=== PATIENT | male | born 1980 | race Caucasian/White ===

== ENCOUNTER → 2019-06-24 | Outpatient (CLI) | payer BC ==
[2019-06-24 17:27] LABS: HCT 46.3 % (39.0-53.0); HGB 15.5 gm/dL (13.0-17.5); MCH 29.2 pg (25.0-35.0); MCHC 33.6 g/dL (31.0-37.0); MCV 86.9 fL (80.0-100.0); Mean Platelet Volume 7.7; Platelet Count 291 k/uL (150-450); RBC 5.33 m/uL (4.30-5.90); RDW 13.5 % (11.5-15.5); WBC 9.1 k/uL (3.8-10.6)
[2019-06-24 23:23] LABS: Estradiol 22.9 pg/mL; Ferritin 265.6 ng/mL (22.0-322.0)
[2019-06-24 23:54] LABS: African American GFR (CKD) 97.5 (60.0-200.0); Albumin 5.2 g/dL (3.80-4.90); Albumin/Globulin Ratio 2.6 (1.60-3.17); Anion Gap 9.4 mmol/L (4.00-12.00); BUN/Creat Ratio 14.55 Ratio (12.00-20.00); C Reactive Protein 0.4 mg/dL (0.0-0.8); Carbon Dioxide 24.6 mmol/L (21.6-31.8); Chol/HDL Ratio 3.55; LDL Cholesterol,Calculated 80.2 mg/dL (0.0-131.0); Non-African American GFR(CKD) 84.1 (60.0-200.0); Potassium 4.2 mmol/L (3.5-5.5); Progesterone 0.3 ng/mL; Total Bilirubin 0.6 mg/dL (0.3-1.2); Total Protein 7.2 g/dL (6.2-8.2); VLDL Calculation 31.8 mg/dL (5.00-40.00)
[2019-06-25 02:09] LABS: Hemoglobin A1C 5.1 % (4.0-6.0)
== END | disposition home or self-care (01) ==
LOC: LABWHC1 16:50
PROVIDERS: ATTEND Family Medicine
DX: Z00.00 Encounter for general adult medical examination without abnormal findings (principal); Z12.5 Encounter for screening for malignant neoplasm of prostate; G47.33 Obstructive sleep apnea (adult) (pediatric); R53.83 Other fatigue
CPT/HCPCS: 80061; 80053; 82728; 82670; 85027; 86140; 84402; 84403; 82627; 83090; 84144; 82306; 83036; 36415; G0103

== ENCOUNTER → 2020-12-19 | Outpatient (CLI) | payer BC ==
--- NOTE | 2020-12-19 18:40 | CONS ---
CONSULTATION A 40-year-old gentleman has been evaluated in Sleep Center for possible obstructive sleep apnea-hypopnea syndrome. HISTORY OF PRESENT ILLNESS: Patient's usual sleep schedule on working days from 9 p.m. to 4:30 a.m. and on weekends from 11:00 pm until 7 a.m. No problems with falling asleep. No TV in bedroom. The patient usually sleeps on the side position. According to his , he has loud snoring and witnessed episodes of stopped breathing during sleep. The patient wakes up from sleep once with nocturia and sweating. In the morning, the patient wakes up tired, falling asleep during the day. [place] Sleepiness Scale is in extremely high range of 20. The patient has episodes of irritability. He does not take any naps because he is quite busy during the day. No history of hypnagogic hallucinations, sleep paralysis or cataplexy. PAST MEDICAL HISTORY: Positive for depression. Tendency for increasing blood pressure. PAST SURGICAL HISTORY: None. MEDICATIONS: Wellbutrin. SOCIAL HISTORY: Positive for smoking about 1-1/2 pack a day for 15 years. Quit 8 years ago. Alcohol consumption, occasional. FAMILY HISTORY: Hypertension. REVIEW OF SYSTEMS: Loud snoring, awakenings from sleep, sleepiness during the day. PHYSICAL EXAMINATION: GENERAL: gentleman without distress BP 153/83, HR 90, RR 15, height 5 feet 10 inches, weight 258. Body mass index is 37, temperature 98.7, oxygen saturation: 96% HEENT: Oropharynx low position of soft palate. Mallampati 3. NECK: Is white, 19 inches in circumference. LUNGS: Clear to percussion and to auscultation. Good air exchange. No wheezing or rhonchi. HEART: S2, S2 regular. No murmurs, gallops or rubs. ABDOMEN: Obese. EXTREMITIES: No clubbing or cyanosis. EARLY CHILDHOOD WORKER: Awake, alert, and oriented X3. Cranial nerves 2 to 7 intact. There is no fasciculation or atrophy noted. No focal deficits observed. IMPRESSION: 1. Loud snoring, witnessed episodes of stopped breathing during sleep. Low position of soft palate, Mallampati 3, wide neck 19 inches in circumference, obstructive sleep apnea-hypopnea syndrome. 2. Obesity, body mass index 37. 3. History of depression. 4. Extremely high level of [place] Sleepiness Scale of 20 dictate necessity to include hypersomnia and narcolepsy in differential diagnosis. 5. Hypertension in the office. PLAN: 1. Home sleep apnea test for evaluation of patient breathing, for confirmation of sleep apnea. 2. If home sleep apnea test negative or if the patient on treatment with CPAP, the patient continues to feel sleepiness, multiple sleep latency test. 3. Losing weight. 4. Sleep hygiene with regular time in bed for at least 7.5 to 8 hours. 5. No driving if feeling sleepiness. Thank you very much for referring this patient for consultation. Sincerely, DAVID / STEVANN: [id number] / ESTRELLA
== END ==
LOC: SLEEP 15:38
PROVIDERS: ATTEND Internal Medicine
DX: G47.33 Obstructive sleep apnea (adult) (pediatric) (principal); E66.9 Obesity, unspecified; F32.9 Major depressive disorder, single episode, unspecified; I10 Essential (primary) hypertension; Z87.891 Personal history of nicotine dependence; Z68.37 Body mass index [BMI] 37.0-37.9, adult
CPT/HCPCS: 99211

== ENCOUNTER → 2021-07-03 | Outpatient (CLI) | payer BC ==
--- NOTE | 2021-07-03 15:43 | SFUN ---
SLEEP CENTER FOLLOW UP NOTE DATE OF SERVICE: 07/03/2021 40-year-old gentleman has been followed in Sleep Center for treatment of obstructive sleep apnea-hypopnea syndrome. Recently, the patient had home sleep apnea test and CPAP titration and I discussed results of sleep studies with patient in detail. Home sleep apnea test showed extremely severe obstructive sleep apnea. Subsequently, patient was started on treatment with CPAP. Today is his first visit after treatment was initiated. The patient feels significantly better with CPAP. He sleeps better. He feels better during the day. [place] Sleepiness Scale today is 8 which is in significantly decreased from 20 during the first visit in Sleep Center. I checked CPAP unit. Range of the pressure 9-14, average pressure 13.7, usage is 97% of nights and days which is 73% of nights, more than 4 hours, average usage 4 hours 49 minutes per night. Leak is a quite significant 46.4 L/minute, 95%, median 21.2, but apnea-hypopnea index only 1.4 which is totally normal range. MEDICATIONS: Wellbutrin. PHYSICAL EXAMINATION: GENERAL: Patient in no distress. BP 138/74, HR 84, RR 14, weight 257.4, temperature 97.1, oxygen saturation at room air 93%. Oropharynx low position of soft palate, Mallampati 3. NECK: Supple, no JVD. Thyroid is not palpable. LUNGS: Clear to percussion and to auscultation. Good air exchange. No wheezing or rhonchi. HEART: S1, S2 regular. No murmurs, gallops, or rubs. ABDOMEN: Obese. Soft and nontender. Bowel sounds are present. No organomegaly appreciated. EXTREMITIES: No clubbing or cyanosis. SENIOR CLINICAL DATA ANALYST: Awake, alert, and oriented X3. Cranial nerves 2 to 7 intact. There is no fasciculation or atrophy. noted. No focal deficits observed. IMPRESSION: 1. Extremely severe obstructive sleep apnea-hypopnea syndrome apnea-hypopnea index 89 by results of home sleep apnea test with oxygen desaturation to 58%. The patient demonstrated good compliance with treatment. Totally normal respiration on CPAP. 2. The patient improved his alertness. [place] Sleepiness Scale decreased from 20 to 8 which is in normal range. 3. Obesity. 4. Slightly increased blood pressure in the office. PLAN: 1. Monitoring blood pressure. 2. Low-sodium diet. 3. Patient will continue to use PAP equipment every night for the whole night. 4. Sleep hygiene with regular time in bed for at least 7-1/2 to 8 hours. 5. Precautions related to driving. No driving if feeling sleepiness. 6. I will maintain all necessary prescription for PAP supplies including mask, tube, filters. 7. Watching weight. 8. Follow-up visit in 6 months or earlier if patient has any problems. Thank you very much for allowing me to participate in management of your patient. Sincerely, René Jordan MD, PhD, FAASM Diplomat of [employer] Sleep Medicine Board of [employer] Car Pick Up Driver of [facility] [place] MMODL / IJN: [id number] /
== END ==
LOC: SLEEP 13:00
PROVIDERS: ATTEND Internal Medicine
DX: G47.33 Obstructive sleep apnea (adult) (pediatric) (principal); E66.9 Obesity, unspecified; I10 Essential (primary) hypertension; F17.200 Nicotine dependence, unspecified, uncomplicated; Z99.89 Dependence on other enabling machines and devices

== ENCOUNTER 2021-09-24 10:26 | Emergency (ER) | payer BC ==
[2021-09-24 10:39] VITALS: BP 142/80; PULSE 98; RESP 18; TEMP 100.3
== END 2021-09-24 11:34 ==
LOC: EC 10:26
DX: Z01.84 Encounter for antibody response examination (principal)
CPT/HCPCS: 99499

== ENCOUNTER → 2022-09-09 | Outpatient (CLI) | payer BC ==
[2022-09-09 21:56] LABS: Clam IgE <0.10 kU/L; Codfish IgE <0.10 kU/L; Egg White IgE <0.10 kU/L; Peanut IgE <0.10 kU/L; Scallop IgE <0.10 kU/L; Shrimp IgE <0.10 kU/L; Soybean IgE <0.10 kU/L; Walnut IgE (Food) <0.10 kU/L
[2022-09-10 12:26] LABS: Gluten IgE Class CLASS 0; Hops IgE <0.10 kU/L (<0.10); Hops IgE Class CLASS 0; Oat IgE Class CLASS 0; Yeast Bakers/Brew IgE <0.10 kU/L (<0.10); Yeast Bakers/Brew IgE Class CLASS 0
== END | disposition home or self-care (01) ==
LOC: LABWHC1 08:36
PROVIDERS: ATTEND Otolaryngology
DX: J30.89 Other allergic rhinitis (principal)
CPT/HCPCS: 36415; 82785; 86001; 86003

== ENCOUNTER → 2022-12-12 | Outpatient (CLI) | payer BC ==
--- NOTE | 2022-12-12 08:36 | MR ---
[facility] MRI CERVICAL SPINE: CLINICAL HISTORY: Cervicalgia. History of injury with neck pain causing right hand numbness for 3 mon ths. TECHNIQUE: Multiplanar, multisequence imaging of the cervical spine is performed without IV contrast. COMPARISON: None. FINDINGS: There is dextroconvex scoliosis centered in the mid to lower lumbar spine on coronal images . Sagittal images of the cervical spine show the craniocervical junction to appear within normal limi ts. The cervical and upper thoracic spinal cord is normal in course, caliber, and signal. Vertebral alignment is satisfactory on sagittal images. The vertebral body heights are normal. Mild to modera te disc space narrowing and spurring at C5-C6 level. Mild disc space narrowing and spurring at C6-C7 level. The bone marrow signal intensity is within normal limits. Axial images show C2-C3 level to appear within normal limits. Axial images at C3-C4 level shows a left paracentral/foraminal spur disc complex mildly efface the an terolateral thecal sac and causing asymmetric moderate left-sided neural foraminal narrowing. Axial images at C4-C5 level appear within normal limits. Axial images at C5-C6 level shows broad-based right paracentral disc protrusion effacing the anterior thecal sac of the ventral surface of spinal cord with left foraminal component causing [id number] ate left-sided neural foraminal narrowing. Right-sided neural foramen is patent. Axial images at C6-C7 level show superior disc extrusion effacing anterior thecal sac and some uncove rtebral facet degenerative change causing mild to moderate left-sided neural foraminal narrowing. Axial images at C7-T1 level appear within normal limits. IMPRESSION: Scoliosis with multilevel degenerative change in the cervical spine as detailed above.
== END | disposition home or self-care (01) ==
LOC: RADMRIMAIN 07:41
PROVIDERS: ATTEND Orthopaedic Surgery Sports Medicine
DX: M47.22 Other spondylosis with radiculopathy, cervical region (principal); M48.02 Spinal stenosis, cervical region; M41.52 Other secondary scoliosis, cervical region; M46.02 Spinal enthesopathy, cervical region
CPT/HCPCS: 72141

== ENCOUNTER → 2023-03-23 | Outpatient (CLI) | payer BC ==
--- NOTE | 2023-03-24 23:30 | MR ---
EXAMINATION TYPE: MR shoulder RT wo con DATE OF EXAM: 03/23/2023 COMPARISON: Outside right shoulder x-ray March 16, 2023 HISTORY: Right shoulder pain and loss of strength for 6 months due to lifting injury. TECHNIQUE: Multiplanar, multisequence imaging of the right shoulder is performed without contrast. FINDINGS: Rotator Cuff: Some fluid surrounds the superior aspect of the supraspinatus tendon. Supraspinatus and infraspinatus tendons are grossly intact. Subscapularis tendon is intact. Rotator cuff muscle bulk i s preserved. Acromioclavicular Joint: [id number] narrowing capsular hypertrophy at the acromioclavicular katie nt. Loss of underlying fat plane noted. Glenohumeral Joint: No significant effusion or spurring. Labrum: The labrum appears grossly intact given limitation of non-arthrogram study. Biceps Tendon: The long head of biceps is in normal location within bicipital groove. Bone marrow signal: No focal abnormal marrow signal is appreciated. Other: No additional significant abnormality is appreciated. IMPRESSION: 1. No significant rotator cuff or labral tear. 2. AC joint arthropathy with suggestion of underlying impingement. Correlate clinically.
== END | disposition home or self-care (01) ==
LOC: RADMRIMAIN 20:45
PROVIDERS: ATTEND Orthopaedic Surgery
DX: M25.811 Other specified joint disorders, right shoulder (principal); M25.511 Pain in right shoulder

== ENCOUNTER → 2023-04-09 | Outpatient (CLI) | payer BC ==
--- NOTE | 2023-04-09 14:01 | P.PN ---
Subjective DATE: 04/09/2023 FOLLOW UP VISIT. Patient with obstructive sleep apnea hypopnea syndrome return to sleep center for follow-up visit. Information from previous visit have been reviewed. Patient is using PAP equipment every night for the whole night, getting PAP supplies in time. The patient does not have significant problems with the mask, PAP unit and humidification. [place] sleepiness scale is 6, which is normal. I checked information from PAP unit and discussed it with patient in details. PAP unit pressure 9-14, average 12.1 cm H2O. Usage is 100 % for more then 4 hours, average 6.5 hours per night. Leak is increased to 78 l/m, patient has beer and mustache. Apnea Hypopnea Index is 2.3, which is normal. MEDICATIONS:1. Wellbutrin During physical exam: GENERAL: A pleasant patient without any distress. VITAL SIGNS: BP 143/82, HR 82, RR 16, weight 356.2, temperature 98.0, oxygen saturation at room air 97 % . HEENT: PERRLA, EOMI.low position of soft palate, Mallapati 3 . NECK: Supple. No JVD. LUNGS: Clear to percussion and to auscultation. Good air exchange. No wheezing or rhonchi. HEART: S1, S2 regular. ABDOMEN: Soft and nontender. Slightly obese EXTREMITIES: No clubbing or cyanosis. AUTO CLUTCH SPECIALIST: Awake, alert, and oriented x3. No focal deficit. Impressions: 1. Obstructive sleep apnea-hypopnea syndrome. Patient demonstrated great compliance with treatment, benefiting from treatment. 2. Obesity. 3. Blood pressure is again slightly increased in the office. Plan: 1. Continue using PAP equipment every night for the whole night. 2. To change air filter at least 1-2 times per month. 3. PAP unit should stay lower then position of the head. 4. Advised patient to remove all remaining water from humidifier canister daily and make it dry after each usage. Refill canister with fresh distilled water before each usage. 5. Sleep hygiene with regular time in bed for at least 8 hours. 6. Precautions related to driving. No driving if feel any sleepiness. 7. I will maintain prescription for PAP supplies including mask, tube, filters. 8. Follow up visit in 6 months or earlier if patient has any problems. 9. Watching and losing weight. 10. Low sodium diet. 11 monitoring blood pressure.. Thank you very much for allowing me to participate in the management of your patient. René Jordan MD, PhD, FAASM. Diplomat of [employer], Sleep Medicine Board by [employer] Beater Tender of [facility] [place]
== END ==
LOC: 3 N SLEEP 13:28
PROVIDERS: ATTEND Internal Medicine
DX: G47.33 Obstructive sleep apnea (adult) (pediatric) (principal); E66.9 Obesity, unspecified; F17.200 Nicotine dependence, unspecified, uncomplicated; R03.0 Elevated blood-pressure reading, without diagnosis of hypertension; Z99.89 Dependence on other enabling machines and devices
CPT/HCPCS: 99212

== ENCOUNTER → 2023-10-15 | Outpatient (CLI) | payer BC ==
--- NOTE | 2023-10-15 13:48 | P.PN ---
Subjective DATE: 10/15/2023 FOLLOW UP VISIT. Patient with obstructive sleep apnea hypopnea syndrome return to sleep center for follow-up visit. Information from previous visit have been reviewed. Patient is using PAP equipment every night for the whole night, getting PAP supplies in time. The patient does not have significant problems with the mask, PAP unit and humidification. [place] sleepiness scale is 9, which is close to border. I checked information from PAP unit. PAP unit pressure 9-14, average 11.8 cm H2O. Usage is 100% for more then 4 hours, average 6.2 hours per night. Leak is high 72 l/m. Apnea Hypopnea Index is 2.6, which is normal. MEDICATIONS: None During physical exam: GENERAL: A pleasant patient without any distress. VITAL SIGNS: Please see below, weight 248.8 pounds. HEENT: PERRLA, EOMI.low position of soft palate, Mallapati 3 . NECK: Supple. No JVD. LUNGS: Clear to percussion and to auscultation. Good air exchange. No wheezing or rhonchi. HEART: S1, S2 regular. ABDOMEN: Soft and nontender.[] EXTREMITIES: No clubbing or cyanosis. ENGINEER CHIEF: Awake, alert, and oriented x3. No focal deficit. Impressions: 1. Obstructive sleep apnea-hypopnea syndrome. Patient demonstrated great compliance with treatment, benefiting from treatment. 2. Blood pressure increased in the office again. Today is 152/89. 3. Mild obesity, patient increased weight on 8 pounds comparing with previous visit. Plan: 1. Continue using PAP equipment every night for the whole night. 2. To change air filter at least 1-2 times per month. 3. PAP unit should stay lower then position of the head. 4. Advised patient to remove all remaining water from humidifier canister daily and make it dry after each usage. Refill canister with fresh distilled water before each usage. 5. Sleep hygiene with regular time in bed for at least 8 hours. 6. Precautions related to driving. No driving if feel any sleepiness. 7. I will maintain prescription for PAP supplies including mask, tube, filters. 8. Follow up visit in 6 months or earlier if patient has any problems. 9. Watching and losing weight. 10. Monitoring blood pressure. 11. Low-sodium diet. Thank you very much for allowing me to participate in the management of your patient. René Jordan MD, PhD, FAASM. Diplomat of [employer], Sleep Medicine Board by [employer] Show Host Or Hostess of [facility] [place] Objective - Vital Signs Vital signs: Vital Signs Temp 98.3 F 10/15/23 13:13 Pulse 83 10/15/23 13:13 Resp 18 10/15/23 13:13 BP 152/89 10/15/23 13:13 Pulse Ox 97 10/15/23 13:13 FiO2 Intake & Output 10/14/23 10/15/23 10/15/23 18:59 06:59 18:59 Weight 112.718 kg
[2023-10-15 13:50] VITALS: BP 152/89; PULSE 83; RESP 18; TEMP 98.3
== END ==
LOC: 3 N SLEEP 13:03
PROVIDERS: ATTEND Internal Medicine
DX: G47.33 Obstructive sleep apnea (adult) (pediatric) (principal); E66.9 Obesity, unspecified; R03.0 Elevated blood-pressure reading, without diagnosis of hypertension; F17.200 Nicotine dependence, unspecified, uncomplicated; Z99.89 Dependence on other enabling machines and devices
CPT/HCPCS: 99212

== ENCOUNTER 2024-07-01 22:46 | Emergency (ER) | payer BC ==
--- NOTE | 2024-07-01 23:38 | ED ---
Chest Pain HPI - General Chief Complaint: Abdominal Pain Stated Complaint: abd pain Time Seen by Provider: 07/01/24 23:21 Source: patient Mode of arrival: ambulatory Limitations: no limitations - History of Present Illness Initial Comments: Patient is a 43-year-old man who presents with complaint that he is having "heartburn." Patient states that he had eaten soup approximately 2 to 3 hours ago and then started having burning substernal pain from the epigastric upward. He states he had similar episode approximately 3 years ago was seen here, recei paloma GI cocktail, felt better and went home. The patient denies other medical problems, no history of surgeries. No associated symptoms. MD Complaint: chest pain Onset/Timin -: hour(s) Onset: after eating Pain Location: substernal, epigastric Pain Radiation: none Severity: severe Quality: other (Burning) Consistency: constant Improves With: nothing Worsens With: nothing Treatments Prior to Arrival: none - Related Data Previous Rx's Medication Instructions Recorded Famotidine [Pepcid] 20 mg PO BID #14 tablet 07/02/24 Allergies Allergy/AdvReac Type Severity Reaction Status Date / Time No Known Allergies Allergy Verified 07/01/24 22:54 Review of Systems ROS Statement: Those systems with pertinent positive or pertinent negative responses have been documented in the HPI. ROS Other: All systems not noted in ROS Statement are negative. Constitutional: Denies: fever, chills Respiratory: Denies: cough, dyspnea Cardiovascular: Reports: as per HPI, chest pain. Denies: palpitations, edema, syncope Gastrointestinal: Reports: abdominal pain. Denies: nausea, vomiting, diarrhea, hematemesis, melena, hematochezia Genitourinary: Denies: dysuria, hematuria Musculoskeletal: Denies: back pain Skin: Denies: rash Neurological: Denies: headache, weakness EKG Findings - EKG Results: EKG: interpreted by ERMD, sinus rhythm (Rate 64 bpm), normal axis, normal QRS - Blocks, Romeo, Hypertrophy, ST Abn: Repolarization changes or abnormalities: nonspecific abnormality, ST segment, and/or T wave Past Medical History Past Medical History: No Reported History History of Any Multi-Drug Resistant Organisms: None Reported Past Surgical History: No Surgical Hx Reported Past Psychological History: No Psychological Hx Reported Smoking Status: Vaper Past Alcohol Use History: Rare Past Drug Use History: None Reported General Exam General appearance: alert, in no apparent distress Head exam: Present: atraumatic, normocephalic Eye exam: Present: normal appearance. Absent: scleral icterus, conjunctival injection Neck exam: Present: normal inspection Respiratory exam: Present: normal lung sounds bilaterally. Absent: respiratory distress, wheezes, rales, rhonchi, stridor, accessory muscle use Cardiovascular Exam: Present: regular rate, normal rhythm, normal heart sounds. Absent: systolic murmur, diastolic murmur, rubs, gallop GI/Abdominal exam: Present: soft, tenderness (There is epigastric and right upper quadrant tenderness, no rebound or guarding). Absent: distended, guarding, rebound, rigid, mass Extremities exam: Present: normal inspection, normal capillary refill. Absent: pedal edema, calf tenderness Back exam: Present: normal inspection. Absent: CVA tenderness (R), CVA tenderness (L) Neurological exam: Present: alert Skin exam: Present: warm, dry, intact, normal color. Absent: rash Course Vital Signs 07/01/24 07/02/24 07/02/24 22:49 00:28 01:31 Temperature 98.9 F 98.8 F 98.6 F Pulse Rate 75 64 71 Respiratory 18 18 Rate Blood Pressure 166/92 148/92 143/83 O2 Sat by Pulse 100 97 98 Oximetry 07/02/24 02:39 Temperature Pulse Rate 74 Respiratory 16 Rate Blood Pressure 145/68 O2 Sat by Pulse 98 Oximetry Chest Pain MDM - MDM The patient had ultrasound of the right upper quadrant that I interpreted as negative for acute cholecystitis, normal common bile duct, no obvious surgical condition. The patient had chest x-ray that I interpreted as negative for acute infiltrate, pneumothorax, congestive heart failure Was pt. sent in by a medical professional or institution (, PA, WINTERIZER, urgent care, hospital, or [place] health care facility...) When possible be specific @ -[No] Did you speak to anyone other than the patient for history (EMS, parent, family, police, friend...)? What history was obtained from this source @ -[No] Did you review nursing and triage notes (agree or disagree)? Why? @ -[I reviewed and agree with nursing and triage notes] Were old charts reviewed (outside hosp., previous admission, EMS record, old EKG, old radiological studies, urgent care reports/EKG's, [place] health care facility records)? Report findings @ -[No old charts were reviewed] Differential Diagnosis (chest pain, altered mental status, abdominal pain women, abdominal pain men, vaginal bleeding, weakness, fever, dyspnea, syncope, headache, dizziness, GI bleed, back pain, seizure, CVA, palpatations, mental health, musculoskeletal)? @ -[Differential Chest Pain: Stable Angina, Unstable Angina, STEMI, NSTEMI Aortic Dissection, Pneumothorax, Musculoskeletal, Esophageal Spasm GERD, Cholecystitis, Pancreatitis, Zoster, this is not meant to be an all-inclusive list. EKG interpreted by me (3pts min.). @ -[I interpreted as above] X-rays interpreted by me (1pt min.). @ -[I interpreted as above CT interpreted by me (1pt min.). @ -[None done] U/S interpreted by me (1pt. min.). @ -[I interpreted as above What testing was considered but not performed or refused? (CT, X-rays, U/S, labs)? Why? @ -[None] What meds were considered but not given or refused? Why? @ -[None] Did you discuss the management of the patient with other professionals (professionals i.e. , PA, WINTERIZER, lab, RT, psych nurse, social media analyst, automobile mechanic radiator, teacher, retail loss prevention officer, community case manager)? Give summary @ -[No] Was smoking cessation discussed for >3mins.? @ -[No] Was critical care preformed (if so, how long)? @ -[No] Were there social determinants of health that impacted care today? How? (Homelessness, low income, unemployed, alcoholism, drug addiction, transportation, low edu. Level, literacy, decrease access to med. care, fpc, rehab)? @ -[No] Was there de-escalation of care discussed even if they declined (Discuss DNR or withdrawal of care, Hospice)? DNR status @ -[No] What co-morbidities impacted this encounter? (DM, HTN, Smoking, COPD, CAD, Cancer, CVA, ARF, Chemo, Hep., AIDS, mental health diagnosis, sleep apnea, m orbid obesity)? @ -[None] Was patient admitted / discharged? Hospital course, mention meds given and route, prescriptions, significant lab abnormalities, going to OR and other pertinent info. @ -[Patient is 43-year-old man here with exacerbation of reflux esophagitis. The patient did have improvement with treatment here. At this point stable for further evaluation and treatment as outpatient we also discussed that patient should have stress test to ensure that there is no evidence of cardiac disease Undiagnosed new problem with uncertain prognosis? @ -[No] Drug Therapy requiring intensive monitoring for toxicity (Heparin, Nitro, Insulin, Cardizem)? @ -[No] Were any procedures done? @ -[No] Diagnosis/symptom? @ -[Gastroesophageal reflux Acute, or Chronic, or Acute on Chronic? @ -[Acute on chronic Uncomplicated (without systemic symptoms) or Complicated (systemic symptoms)? @ -[Uncomplicated Side effects of treatment? @ -[No] Exacerbation, Progression, or Severe Exacerbation? @ -[No] Poses a threat to life or bodily function? How? (Chest pain, [place], [place], pneumonia, PE, COPD, DKA, ARF, appy, cholecystitis, CVA, Diverticulitis, Homicidal, Suicidal, threat to staff... and all critical care pts) @ -[No] All treatments are based on ideal body weight as in ED triage Disposition Clinical Impression: Esophagitis Disposition: HOME SELF-CARE Condition: Good Instructions (If sedation given, give patient instructions): Esophagitis (ED) Prescriptions: Famotidine [Pepcid] 20 mg PO BID #14 tablet Is patient prescribed a controlled substance at d/c from ED?: No Referrals: None,Stated [Primary Care Provider] - 1-2 days Sury Lantigua MD [STAFF PHYSICIAN] - 1-2 days
[2024-07-02] MEDS: LIDOCAINE VISCOUS 2% 15 ML CUP MUCOUS MEM STA (00:24)
[2024-07-02] MEDS: MAG HYDROX/AL HYDROX/SIMETH 30 ML CUP PO PRN (00:25)
[2024-07-02 00:33] LABS: Basophils % (A) 0 %; Eosinophils # (A) 0.1 k/uL (0-0.7); Eosinophils % (A) 2 %; HCT 46.7 % (39.0-53.0); HGB 15.8 gm/dL (13.0-17.5); Lymphocytes % (A) 13 %; MCH 29.3 pg (25.0-35.0); MCHC 33.7 g/dL (31.0-37.0); MCV 86.8 fL (80.0-100.0); Monocytes # (A) 0.8 k/uL (0-1.0); Monocytes % (A) 10 %; Neutrophils # (A) 5.4 k/uL (1.3-7.7); Neutrophils % (A) 72 %; Platelet Count 221 k/uL (150-450); RBC 5.39 m/uL (4.30-5.90); RDW 13.8 % (11.5-15.5); WBC 7.4 k/uL (3.8-10.6)
[2024-07-02] MEDS: MORPHINE SULFATE 4 MG/ML SYRINGE IV STA (00:35)
[2024-07-02 00:53] LABS: ALT 29 U/L (4-49); AST 27 U/L (17-59); African American GFR (CKD) >90 (>60 ml/min/1.73 sqM); Albumin 4.3 g/dL (3.5-5.0); Alkaline Phosphatase 37 U/L (38-126); Amylase 41 U/L (30-110); Anion Gap 10 mmol/L; Blood Urea Nitrogen 20 mg/dL (9-20); Calcium 9.3 mg/dL (8.4-10.2); Carbon Dioxide 26 mmol/L (22-30); Chloride 100 mmol/L (98-107); Glucose 114 mg/dL (74-99); Lipase 115 U/L (23-300); Non-African American GFR(CKD) >90 (>60 ml/min/1.73 sqM); Potassium 3.8 mmol/L (3.5-5.1); Sodium 136 mmol/L (137-145); Total Bilirubin 0.6 mg/dL (0.2-1.3); Total Protein 6.7 g/dL (6.3-8.2)
[2024-07-02 01:35] VITALS: TEMP 98.6
[2024-07-02] MEDS: ACET/COD 300 MG/30 MG STARTER PACK 6 TAB BTL PO STA (02:38)
[2024-07-02] MEDS: FAMOTIDINE 20 MG/2 ML VIAL IV STA (02:39)
[2024-07-02 02:40] VITALS: BP 145/68; PULSE 74; RESP 16
--- NOTE | 2024-07-02 03:16 | XR ---
EXAM: XR Chest, 2 Views CLINICAL HISTORY: chest pain TECHNIQUE: Frontal and lateral views of the chest. COMPARISON: 09-15-14 FINDINGS: Lungs: Unremarkable. No consolidation. Pleural space: Unremarkable. Mediastinum: Unremarkable. Normal mediastinal contour. Bones/joints: No acute findings. IMPRESSION: No acute findings.
--- NOTE | 2024-07-02 03:18 | US ---
EXAM: US Abdomen Limited, Right Upper Quadrant CLINICAL HISTORY: RUQ, TECHNIQUE: Real-time ultrasound of the right upper quadrant with image documentation. 48 images COMPARISON: No relevant prior studies available. FINDINGS: Liver: Liver measures about 21.1 cm longitudinally. No intrahepatic bile duct dilation. Gallbladder: Gallbladder wall measures about 3 mm maximal thickness. Moderate amount of sludge in the gallbladder with questionable tiny stones. Positive sonographic Ward's sign. Common bile duct: Common bile duct measures about 8 mm maximal diameter. No stones. No dilation. Pancreas: Unremarkable as visualized. Right kidney: Right kidney measures about 11.9 x 6.1 x 5.9 cm. No stones. No hydronephrosis. IMPRESSION: Findings of the gallbladder may suggest cholecystitis. Hepatomegaly
== END 2024-07-02 02:40 | disposition home or self-care (01) ==
LOC: EC 22:46
DX: K20.90 Esophagitis, unspecified without bleeding (principal); F17.290 Nicotine dependence, other tobacco product, uncomplicated
CPT/HCPCS: 36415; 80053; 82150; 83690; 84484; 85025; 71046; 76705; 99285; 96374; 96375; J2270; J3490; 93005